=== PATIENT | male | born 1965 | race African-American/Black ===

== ENCOUNTER 2018-10-17 14:07 | Inpatient (IN) | payer MEDICAID, OTHER ==
[~2018-10-17] VITALS: Ht 172.7 cm; Wt 65.2 kg
[~2018-10-17 14:07] MED LIST: BENZ1TAB70 PO; HALO5TAB2 PO; TRUVT PO
[2018-10-17 16:36] LABS: AMPHET/METH SCREEN,URINE NEGATIVE (NEGATIVE); BARBITURATE SCREEN, URINE NEGATIVE (NEGATIVE); BENZODIAZEPINES SCREEN,URINE NEGATIVE (NEGATIVE); CANNABINOID SCREEN,URINE NEGATIVE (NEGATIVE); COCAINE SCREEN,URINE NEGATIVE (NEGATIVE); METHADONE SCREEN, URINE NEGATIVE (NEGATIVE); OPIATE SCREEN,URINE NEGATIVE (NEGATIVE)
[2018-10-17 16:47] LABS: BASOPHILS % (AUTO) 0.7 % (0.0-2.0); HEMATOCRIT 40.6 % (41-53); HEMOGLOBIN 12.7 g/dL (13.5-17.5); LYMPHOCYTES % (AUTO) 35.4 % (22.0-44.0); MEAN CORPUSCULAR HEMOGLOBIN 21.7 pg (26.0-34.0); MEAN CORPUSCULAR HGB CONC 31.3 G/dL (31.0-37.0); MEAN CORPUSCULAR VOLUME 70 fL (80-100); MONOCYTES # (AUTO) 0.5 K/uL (0.1-1.0); MONOCYTES % (AUTO) 16.9 % (2.0-9.0); NEUTROPHILS # (AUTO) 1.2 K/uL (1.8-7.7); PLATELET COUNT (AUTO) 288 K/uL (150-450); RED BLOOD CELL COUNT(AUTO) 5.84 MIL/uL (4.50-5.90); RED CELL DISTRIBUTION WIDTH 15.5 % (11.5-14.5)
[2018-10-17 16:48] LABS: PHENCYCLIDINE SCREEN,URINE NEGATIVE (NEGATIVE)
[2018-10-17 16:59] LABS: ANION GAP 5 mmol/L (8-16); CALCIUM, TOTAL 9.7 mg/dL (8.8-10.5); CARBON DIOXIDE 29 mmol/L (22-29); CHLORIDE 108 mmol/L (98-107); CREATININE 1.07 mg/dL (0.60-1.30); GLOMERULAR FILTR. RATE CALC > 60 mL/min (>60); GLUCOSE,RANDOM 114 mg/dL (70-110); POTASSIUM 4.9 mmol/L (3.5-5.1); SODIUM SERUM 142 mmol/L (136-145); UREA NITROGEN, BLOOD 8 mg/dL (7-18)
[2018-10-17] MEDS ORDERED: LORazepam 2 MG TABLET PO PRN (17:00)
[2018-10-17] MEDS ORDERED: HALOPERIDOL 5 MG TABLET PO PRN (17:00)
[2018-10-17] MEDS ORDERED: ZOLPIDEM TARTRATE 10 MG TABLET PO PRN (17:00)
[2018-10-17 17:04] LABS: ALANINE AMINOTRANSFERASE 42 U/L (12-78); ALBUMIN 3.1 g/dL (3.4-5.0); ALKALINE PHOSPHATASE 65 U/L (46-116); ASPARTATE AMINOTRANSFERASE 40 U/L (15-37); BILIRUBIN,TOTAL 0.3 mg/dL (0.1-1.0); TOTAL PROTEIN, SERUM 7.9 g/dL (6.4-8.2)
[2018-10-17] MEDS ORDERED: IBUPROFEN 400 MG TABLET PO PRN ×2 (17:15→19:30)
[2018-10-17] MEDS ORDERED: ACETAMINOPHEN 325 MG TABLET PO PRN ×2 (17:15→19:30)
[2018-10-17 18:35] VITALS: BP 126/79
[2018-10-17] MEDS ORDERED: CloNIDine HCL 0.1 MG TABLET PO PRN (19:30)
[2018-10-17] MEDS ORDERED: ONDANSETRON HCL 4 MG TABLET PO PRN (19:30)
[2018-10-17] MEDS ORDERED: PETROLATUM,WHITE 71 GM JELLY TP PRN (19:30)
[2018-10-17] MEDS ORDERED: DOCUSATE SODIUM 100 MG CAPSULE PO PRN (19:30)
[2018-10-17] MEDS ORDERED: ALBUTEROL SULFATE HFA 90 MCG/PUFF 8 GM INHALER IH PRN (19:30)
[2018-10-17] MEDS ORDERED: MAG HYDROX/AL HYDROX/SIMETH ES 30 ML SUSPENSION UDCUP PO PRN (19:30)
[2018-10-17] MEDS ORDERED: NICOTINE 14 MG/24 HOUR PATCH TD PRN (19:30)
[2018-10-17] MEDS ORDERED: GuaiFENesin/D-METHORPHAN [SUGAR-FREE] 200-20MG/10 ML SYRUP UDCUP PO PRN (19:30)
[2018-10-17] MEDS ORDERED: LOPERAMIDE HCL 2 MG CAPSULE PO PRN (19:30)
[2018-10-17] MEDS ORDERED: MAGNESIUM HYDROXIDE SUSPENSION 30 ML UDCUP PO PRN (19:30)
[2018-10-18 06:31] LABS: EOSINOPHILS % (AUTO) 3.5 % (1.0-6.0); HEMATOCRIT 40.5 % (41-53); HEMOGLOBIN 12.8 g/dL (13.5-17.5); LYMPHOCYTES # (AUTO) 1.1 K/uL (1.0-4.8); LYMPHOCYTES % (AUTO) 34.2 % (22.0-44.0); MEAN CORPUSCULAR HGB CONC 31.6 G/dL (31.0-37.0); MEAN CORPUSCULAR VOLUME 70 fL (80-100); MONOCYTES # (AUTO) 0.5 K/uL (0.1-1.0); NEUTROPHILS # (AUTO) 1.6 K/uL (1.8-7.7); NEUTROPHILS % (AUTO) 47.3 % (40.0-70.0); PLATELET COUNT (AUTO) 287 K/uL (150-450); RED BLOOD CELL COUNT(AUTO) 5.82 MIL/uL (4.50-5.90); RED CELL DISTRIBUTION WIDTH 15.7 % (11.5-14.5)
[2018-10-18 07:00] LABS: ALANINE AMINOTRANSFERASE 41 U/L (12-78); ALKALINE PHOSPHATASE 58 U/L (46-116); ANION GAP 6 mmol/L (8-16); ASPARTATE AMINOTRANSFERASE 47 U/L (15-37); BILIRUBIN,TOTAL 0.4 mg/dL (0.1-1.0); CALCIUM, TOTAL 9.3 mg/dL (8.8-10.5); CARBON DIOXIDE 27 mmol/L (22-29); CHLORIDE 101 mmol/L (98-107); CHOL/HDL RATIO 2.9 (4.2-7.3); CHOLESTEROL 147 mg/dL (131-200); CREATININE 0.91 mg/dL (0.60-1.30); GLOMERULAR FILTR. RATE CALC > 60 mL/min (>60); GLUCOSE,RANDOM 88 mg/dL (70-110); HDL CHOLESTEROL 50 mg/dL (40-60); LDL CHOL (CALC.) 86 mg/dL (0-130); POTASSIUM 4.2 mmol/L (3.5-5.1); SODIUM SERUM 134 mmol/L (136-145); THYROID STIMULATING HORMONE 0.75 uIU/mL (0.36-3.74); TOTAL PROTEIN, SERUM 7.7 g/dL (6.4-8.2); TRIGLYCERIDES 54 mg/dL (15-150); UREA NITROGEN, BLOOD 9 mg/dL (7-18)
[2018-10-18 07:29] LABS: HEMOGLOBIN A1C 6.5 % (4.5-6.2)
[2018-10-18 08:21] VITALS: BP 130/92
[2018-10-18] MEDS: EMTRICITABINE/TENOFOVIR 200-300 MG TABLET PO SCH (10:56)
[2018-10-18 16:00] VITALS: BP 108/73
[2018-10-18] MEDS: BENZTROPINE MESYLATE 1 MG TABLET PO SCH (20:30)
[2018-10-18] MEDS: HALOPERIDOL 5 MG TABLET PO SCH (20:30)
[2018-10-19] MEDS: BENZTROPINE MESYLATE 1 MG TABLET PO SCH ×2 (08:16→20:21)
[2018-10-19] MEDS: HALOPERIDOL 5 MG TABLET PO SCH ×2 (08:16→20:21)
[2018-10-19] MEDS: FOLIC ACID 1 MG TABLET PO SCH (08:16)
[2018-10-19] MEDS: EMTRICITABINE/TENOFOVIR 200-300 MG TABLET PO SCH (08:16)
[2018-10-19 08:37] VITALS: BP 115/74
[2018-10-19 16:49] VITALS: BP 124/77
[2018-10-20] MEDS: FOLIC ACID 1 MG TABLET PO SCH (07:36)
[2018-10-20] MEDS: EMTRICITABINE/TENOFOVIR 200-300 MG TABLET PO SCH (07:36)
[2018-10-20] MEDS: HALOPERIDOL 5 MG TABLET PO SCH ×2 (07:36→20:35)
[2018-10-20] MEDS: BENZTROPINE MESYLATE 1 MG TABLET PO SCH ×2 (07:36→20:35)
[2018-10-20 09:00] VITALS: BP 140/83
[2018-10-20 16:02] VITALS: BP 121/85
[2018-10-21 08:03] VITALS: BP 111/81
[2018-10-21] MEDS: BENZTROPINE MESYLATE 1 MG TABLET PO SCH ×2 (09:00→20:19)
[2018-10-21] MEDS: FOLIC ACID 1 MG TABLET PO SCH (09:00)
[2018-10-21] MEDS: HALOPERIDOL 5 MG TABLET PO SCH ×2 (09:00→20:19)
[2018-10-21] MEDS: EMTRICITABINE/TENOFOVIR 200-300 MG TABLET PO SCH (09:00)
[2018-10-21 16:00] VITALS: BP 134/71
[2018-10-22] MEDS: EMTRICITABINE/TENOFOVIR 200-300 MG TABLET PO SCH (09:00)
[2018-10-22] MEDS: FOLIC ACID 1 MG TABLET PO SCH (09:00)
[2018-10-22] MEDS: BENZTROPINE MESYLATE 1 MG TABLET PO SCH ×2 (09:00→20:15)
[2018-10-22] MEDS: HALOPERIDOL 5 MG TABLET PO SCH ×2 (09:00→20:16)
[2018-10-22 09:48] VITALS: BP 133/87
[2018-10-23 08:13] VITALS: BP 124/76
[2018-10-23] MEDS: FOLIC ACID 1 MG TABLET PO SCH (09:00)
[2018-10-23] MEDS: BENZTROPINE MESYLATE 1 MG TABLET PO SCH (09:00)
[2018-10-23] MEDS: EMTRICITABINE/TENOFOVIR 200-300 MG TABLET PO SCH (09:00)
[2018-10-23] MEDS: HALOPERIDOL 5 MG TABLET PO SCH (09:00)
[2018-10-23] MEDS ORDERED: FOLI1 PO (11:42)
== END 2018-10-23 14:55 | disposition home or self-care (01) | DRG 750 ==
LOC: EMS 14:08 → 3EC 18:06
PROVIDERS: ADMIT Psychiatry & Neurology Psychiatry; ATTEND Psychiatry & Neurology Psychiatry
DX: F20.0 Paranoid schizophrenia (principal); R45.850 Homicidal ideations; E11.9 Type 2 diabetes mellitus without complications; D64.9 Anemia, unspecified; D72.819 Decreased white blood cell count, unspecified; F09 Unspecified mental disorder due to known physiological condition
CPT/HCPCS: 83036; 84443; G0480

== ENCOUNTER 2018-11-04 12:34 | Inpatient (IN) | payer MEDICAID ==
[~2018-11-04] VITALS: Ht 172.7 cm; Wt 67.3 kg
[~2018-11-04 12:34] MED LIST changes: +FOLI1 PO
[2018-11-04] MEDS ORDERED: HALO10 PO (13:03)
[2018-11-04 13:33] LABS: BASOPHILS % (AUTO) 1.4 % (0.0-2.0); EOSINOPHILS % (AUTO) 2.3 % (1.0-6.0); HEMATOCRIT 38.5 % (41-53); HEMOGLOBIN 12.1 g/dL (13.5-17.5); LYMPHOCYTES # (AUTO) 0.9 K/uL (1.0-4.8); LYMPHOCYTES % (AUTO) 33.9 % (22.0-44.0); MEAN CORPUSCULAR HEMOGLOBIN 21.6 pg (26.0-34.0); MEAN CORPUSCULAR HGB CONC 31.4 G/dL (31.0-37.0); MEAN CORPUSCULAR VOLUME 69 fL (80-100); MONOCYTES # (AUTO) 0.3 K/uL (0.1-1.0); MONOCYTES % (AUTO) 11.4 % (2.0-9.0); NEUTROPHILS # (AUTO) 1.3 K/uL (1.8-7.7); PLATELET COUNT (AUTO) 278 K/uL (150-450); RED CELL DISTRIBUTION WIDTH 15.8 % (11.5-14.5)
[2018-11-04 13:42] LABS: ANION GAP 9 mmol/L (8-16); CALCIUM, TOTAL 9.2 mg/dL (8.8-10.5); CARBON DIOXIDE 27 mmol/L (22-29); CHLORIDE 106 mmol/L (98-107); CREATININE 0.95 mg/dL (0.60-1.30); GLOMERULAR FILTR. RATE CALC > 60 mL/min (>60); GLUCOSE,RANDOM 95 mg/dL (70-110); POTASSIUM 3.8 mmol/L (3.5-5.1); SODIUM SERUM 142 mmol/L (136-145); UREA NITROGEN, BLOOD 11 mg/dL (7-18)
[2018-11-04 13:48] LABS: ALANINE AMINOTRANSFERASE 54 U/L (12-78); ALBUMIN 3.3 g/dL (3.4-5.0); ALKALINE PHOSPHATASE 58 U/L (46-116); ASPARTATE AMINOTRANSFERASE 46 U/L (15-37); BILIRUBIN,TOTAL 0.3 mg/dL (0.1-1.0)
[2018-11-04 13:53] LABS: AMPHET/METH SCREEN,URINE NEGATIVE (NEGATIVE); BARBITURATE SCREEN, URINE NEGATIVE (NEGATIVE); BENZODIAZEPINES SCREEN,URINE NEGATIVE (NEGATIVE); CANNABINOID SCREEN,URINE NEGATIVE (NEGATIVE); COCAINE SCREEN,URINE NEGATIVE (NEGATIVE); METHADONE SCREEN, URINE NEGATIVE (NEGATIVE); OPIATE SCREEN,URINE NEGATIVE (NEGATIVE); PHENCYCLIDINE SCREEN,URINE NEGATIVE (NEGATIVE)
[2018-11-04] MEDS ORDERED: ZOLPIDEM TARTRATE 10 MG TABLET PO PRN (17:00)
[2018-11-04] MEDS ORDERED: LORazepam 2 MG TABLET PO PRN (17:00)
[2018-11-04] MEDS ORDERED: HALOPERIDOL 5 MG TABLET PO PRN (17:00)
[2018-11-04 18:05] VITALS: BP 152/82
[2018-11-04] MEDS ORDERED: NICOTINE 14 MG/24 HOUR PATCH TD PRN (20:45)
[2018-11-04] MEDS ORDERED: DOCUSATE SODIUM 100 MG CAPSULE PO PRN (20:45)
[2018-11-04] MEDS ORDERED: CloNIDine HCL 0.1 MG TABLET PO PRN (20:45)
[2018-11-04] MEDS ORDERED: ACETAMINOPHEN 325 MG TABLET PO PRN (20:45)
[2018-11-04] MEDS ORDERED: MAGNESIUM HYDROXIDE SUSPENSION 30 ML UDCUP PO PRN (20:45)
[2018-11-04] MEDS ORDERED: ONDANSETRON HCL 4 MG TABLET PO PRN (20:45)
[2018-11-04] MEDS ORDERED: ALBUTEROL SULFATE HFA 90 MCG/PUFF 8 GM INHALER IH PRN (20:45)
[2018-11-04] MEDS ORDERED: LOPERAMIDE HCL 2 MG CAPSULE PO PRN (20:45)
[2018-11-04] MEDS ORDERED: IBUPROFEN 400 MG TABLET PO PRN (20:45)
[2018-11-04] MEDS ORDERED: GuaiFENesin/D-METHORPHAN [SUGAR-FREE] 200-20MG/10 ML SYRUP UDCUP PO PRN (20:45)
[2018-11-04] MEDS ORDERED: MAG HYDROX/AL HYDROX/SIMETH ES 30 ML SUSPENSION UDCUP PO PRN (20:45)
[2018-11-04] MEDS ORDERED: PETROLATUM,WHITE 28 GM JELLY TP PRN (20:45)
[2018-11-05 06:18] LABS: HEMATOCRIT 37.8 % (41-53); LYMPHOCYTES % (AUTO) 33.2 % (22.0-44.0); MEAN CORPUSCULAR HEMOGLOBIN 21.7 pg (26.0-34.0); MEAN CORPUSCULAR HGB CONC 31.9 G/dL (31.0-37.0); MEAN CORPUSCULAR VOLUME 68 fL (80-100); MONOCYTES # (AUTO) 0.3 K/uL (0.1-1.0); NEUTROPHILS # (AUTO) 1.5 K/uL (1.8-7.7); NEUTROPHILS % (AUTO) 50.8 % (40.0-70.0); PLATELET COUNT (AUTO) 280 K/uL (150-450); RED BLOOD CELL COUNT(AUTO) 5.53 MIL/uL (4.50-5.90); RED CELL DISTRIBUTION WIDTH 15.8 % (11.5-14.5)
[2018-11-05 06:41] LABS: HEMOGLOBIN A1C 6.6 % (4.5-6.2)
[2018-11-05 07:28] LABS: ALANINE AMINOTRANSFERASE 50 U/L (12-78); ALBUMIN 3.1 g/dL (3.4-5.0); ALKALINE PHOSPHATASE 51 U/L (46-116); ANION GAP 9 mmol/L (8-16); ASPARTATE AMINOTRANSFERASE 43 U/L (15-37); BILIRUBIN,TOTAL 0.3 mg/dL (0.1-1.0); CARBON DIOXIDE 25 mmol/L (22-29); CHLORIDE 104 mmol/L (98-107); CHOL/HDL RATIO 2.8 (4.2-7.3); CHOLESTEROL 150 mg/dL (131-200); CREATININE 0.96 mg/dL (0.60-1.30); GLOMERULAR FILTR. RATE CALC > 60 mL/min (>60); GLUCOSE,RANDOM 89 mg/dL (70-110); HDL CHOLESTEROL 53 mg/dL (40-60); LDL CHOL (CALC.) 86 mg/dL (0-130); POTASSIUM 3.8 mmol/L (3.5-5.1); SODIUM SERUM 138 mmol/L (136-145); THYROID STIMULATING HORMONE 0.38 uIU/mL (0.36-3.74); TOTAL PROTEIN, SERUM 7.3 g/dL (6.4-8.2); TRIGLYCERIDES 53 mg/dL (15-150); UREA NITROGEN, BLOOD 13 mg/dL (7-18)
[2018-11-05] MEDS: EMTRICITABINE/TENOFOVIR 200-300 MG TABLET PO SCH (09:00)
[2018-11-05 18:04] LABS: FREE T4 (FREE THYROXINE) 0.99 ng/dL (0.76-1.46)
[2018-11-05] MEDS: HALOPERIDOL 5 MG TABLET PO SCH (21:00)
[2018-11-05] MEDS: BENZTROPINE MESYLATE 1 MG TABLET PO SCH (21:00)
[2018-11-06 08:00] VITALS: BP 139/82
[2018-11-06] MEDS: BENZTROPINE MESYLATE 1 MG TABLET PO SCH ×2 (09:00→21:00)
[2018-11-06] MEDS: HALOPERIDOL 5 MG TABLET PO SCH ×2 (09:00→21:00)
[2018-11-06] MEDS: EMTRICITABINE/TENOFOVIR 200-300 MG TABLET PO SCH (09:00)
[2018-11-07 08:47] VITALS: BP 122/80
[2018-11-07] MEDS: BENZTROPINE MESYLATE 1 MG TABLET PO SCH (09:00)
[2018-11-07] MEDS: HALOPERIDOL 5 MG TABLET PO SCH (09:00)
[2018-11-07] MEDS: EMTRICITABINE/TENOFOVIR 200-300 MG TABLET PO SCH (09:00)
== END 2018-11-07 14:45 | disposition home or self-care (01) | DRG 750 ==
LOC: EMS 12:34 → 3EC 17:15
PROVIDERS: ADMIT Psychiatry & Neurology Psychiatry; ATTEND Psychiatry & Neurology Psychiatry
DX: F20.0 Paranoid schizophrenia (principal); E11.9 Type 2 diabetes mellitus without complications; Z91.19 Patient's noncompliance with other medical treatment and regimen; D64.9 Anemia, unspecified; D72.819 Decreased white blood cell count, unspecified; Z79.899 Other long term (current) drug therapy
CPT/HCPCS: 83036; 84439; 84443; G0480

== ENCOUNTER 2018-11-20 10:57 | Inpatient (IN) | payer MEDICAID, OTHER ==
[~2018-11-20] VITALS: Ht 167.6 cm; Wt 64.1 kg
[~2018-11-20 10:57] MED LIST changes: -BENZ1TAB70 PO; -FOLI1 PO; -HALO5TAB2 PO
[2018-11-20 11:43] LABS: BASOPHILS % (AUTO) 0.7 % (0.0-2.0); EOSINOPHILS % (AUTO) 4.5 % (1.0-6.0); HEMATOCRIT 38.9 % (41-53); HEMOGLOBIN 12.4 g/dL (13.5-17.5); LYMPHOCYTES % (AUTO) 37.9 % (22.0-44.0); MEAN CORPUSCULAR HEMOGLOBIN 21.7 pg (26.0-34.0); MEAN CORPUSCULAR VOLUME 68 fL (80-100); MONOCYTES # (AUTO) 0.4 K/uL (0.1-1.0); MONOCYTES % (AUTO) 15.3 % (2.0-9.0); NEUTROPHILS # (AUTO) 1.1 K/uL (1.8-7.7); NEUTROPHILS % (AUTO) 41.6 % (40.0-70.0); PLATELET COUNT (AUTO) 313 K/uL (150-450); RED BLOOD CELL COUNT(AUTO) 5.74 MIL/uL (4.50-5.90); RED CELL DISTRIBUTION WIDTH 15.6 % (11.5-14.5)
[2018-11-20 11:47] LABS: AMPHET/METH SCREEN,URINE NEGATIVE (NEGATIVE); BARBITURATE SCREEN, URINE NEGATIVE (NEGATIVE); BENZODIAZEPINES SCREEN,URINE NEGATIVE (NEGATIVE); CANNABINOID SCREEN,URINE NEGATIVE (NEGATIVE); COCAINE SCREEN,URINE NEGATIVE (NEGATIVE); METHADONE SCREEN, URINE NEGATIVE (NEGATIVE); OPIATE SCREEN,URINE NEGATIVE (NEGATIVE)
[2018-11-20 11:48] LABS: PHENCYCLIDINE SCREEN,URINE NEGATIVE (NEGATIVE)
[2018-11-20 11:55] LABS: ANION GAP 8 mmol/L (8-16); CALCIUM, TOTAL 9.4 mg/dL (8.8-10.5); CARBON DIOXIDE 29 mmol/L (22-29); CHLORIDE 106 mmol/L (98-107); CREATININE 1.03 mg/dL (0.60-1.30); GLOMERULAR FILTR. RATE CALC > 60 mL/min (>60); GLUCOSE,RANDOM 104 mg/dL (70-110); POTASSIUM 3.8 mmol/L (3.5-5.1); SODIUM SERUM 143 mmol/L (136-145); UREA NITROGEN, BLOOD 12 mg/dL (7-18)
[2018-11-20 12:00] LABS: ALANINE AMINOTRANSFERASE 62 U/L (12-78); ALBUMIN 3.4 g/dL (3.4-5.0); ALKALINE PHOSPHATASE 83 U/L (46-116); ASPARTATE AMINOTRANSFERASE 55 U/L (15-37); BILIRUBIN,TOTAL 0.3 mg/dL (0.1-1.0); TOTAL PROTEIN, SERUM 8.4 g/dL (6.4-8.2)
[2018-11-20] MEDS: DiphenhydrAMINE HCL 50 MG CAPSULE PO ONE ×2 (13:43→13:56)
[2018-11-20] MEDS: LORazepam 2 MG TABLET PO ONE ×2 (13:44→13:56)
[2018-11-20] MEDS: HALOPERIDOL 5 MG TABLET PO ONE ×2 (13:44→13:56)
[2018-11-20] MEDS ORDERED: LORazepam 2 MG TABLET PO PRN (13:45)
[2018-11-20] MEDS ORDERED: ACETAMINOPHEN 325 MG TABLET PO PRN ×2 (13:45→17:45)
[2018-11-20] MEDS ORDERED: IBUPROFEN 400 MG TABLET PO PRN ×2 (13:45→17:45)
[2018-11-20] MEDS ORDERED: HALOPERIDOL 5 MG TABLET PO PRN (13:45)
[2018-11-20] MEDS ORDERED: ZOLPIDEM TARTRATE 10 MG TABLET PO PRN (13:45)
[2018-11-20 17:39] VITALS: BP 115/68
[2018-11-20] MEDS ORDERED: NICOTINE 14 MG/24 HOUR PATCH TD PRN (17:45)
[2018-11-20] MEDS ORDERED: GuaiFENesin/D-METHORPHAN [SUGAR-FREE] 200-20MG/10 ML SYRUP UDCUP PO PRN (17:45)
[2018-11-20] MEDS ORDERED: ONDANSETRON HCL 4 MG TABLET PO PRN (17:45)
[2018-11-20] MEDS ORDERED: DOCUSATE SODIUM 100 MG CAPSULE PO PRN (17:45)
[2018-11-20] MEDS ORDERED: CloNIDine HCL 0.1 MG TABLET PO PRN (17:45)
[2018-11-20] MEDS ORDERED: MAGNESIUM HYDROXIDE SUSPENSION 30 ML UDCUP PO PRN (17:45)
[2018-11-20] MEDS ORDERED: MAG HYDROX/AL HYDROX/SIMETH ES 30 ML SUSPENSION UDCUP PO PRN (17:45)
[2018-11-20] MEDS ORDERED: ALBUTEROL SULFATE HFA 90 MCG/PUFF 8 GM INHALER IH PRN (17:45)
[2018-11-20] MEDS ORDERED: LOPERAMIDE HCL 2 MG CAPSULE PO PRN (17:45)
[2018-11-20] MEDS ORDERED: PETROLATUM,WHITE 28 GM JELLY TP PRN (17:45)
[2018-11-21 05:31] VITALS: BP 113/64
[2018-11-21 08:16] LABS: BASOPHILS % (AUTO) 0.5 % (0.0-2.0); EOSINOPHILS % (AUTO) 5.3 % (1.0-6.0); HEMATOCRIT 41.2 % (41-53); HEMOGLOBIN 12.9 g/dL (13.5-17.5); LYMPHOCYTES # (AUTO) 1.1 K/uL (1.0-4.8); LYMPHOCYTES % (AUTO) 34.7 % (22.0-44.0); MEAN CORPUSCULAR HEMOGLOBIN 21.7 pg (26.0-34.0); MEAN CORPUSCULAR HGB CONC 31.3 G/dL (31.0-37.0); MEAN CORPUSCULAR VOLUME 69 fL (80-100); MONOCYTES # (AUTO) 0.4 K/uL (0.1-1.0); MONOCYTES % (AUTO) 12.3 % (2.0-9.0); NEUTROPHILS # (AUTO) 1.5 K/uL (1.8-7.7); NEUTROPHILS % (AUTO) 47.2 % (40.0-70.0); PLATELET COUNT (AUTO) 315 K/uL (150-450); RED BLOOD CELL COUNT(AUTO) 5.95 MIL/uL (4.50-5.90); RED CELL DISTRIBUTION WIDTH 15.7 % (11.5-14.5)
[2018-11-21 08:21] VITALS: BP 100/57
[2018-11-21 08:37] LABS: HEMOGLOBIN A1C 6.7 % (4.5-6.2)
[2018-11-21 08:45] LABS: ALANINE AMINOTRANSFERASE 54 U/L (12-78); ALBUMIN 3.1 g/dL (3.4-5.0); ALKALINE PHOSPHATASE 63 U/L (46-116); ANION GAP 6 mmol/L (8-16); ASPARTATE AMINOTRANSFERASE 49 U/L (15-37); BILIRUBIN,TOTAL 0.3 mg/dL (0.1-1.0); CALCIUM, TOTAL 9.3 mg/dL (8.8-10.5); CARBON DIOXIDE 28 mmol/L (22-29); CHLORIDE 105 mmol/L (98-107); CHOLESTEROL 154 mg/dL (131-200); CREATININE 0.97 mg/dL (0.60-1.30); GLOMERULAR FILTR. RATE CALC > 60 mL/min (>60); GLUCOSE,RANDOM 86 mg/dL (70-110); HDL CHOLESTEROL 51 mg/dL (40-60); LDL CHOL (CALC.) 88 mg/dL (0-130); POTASSIUM 4.3 mmol/L (3.5-5.1); SODIUM SERUM 139 mmol/L (136-145); THYROID STIMULATING HORMONE 0.44 uIU/mL (0.36-3.74); TOTAL PROTEIN, SERUM 8.3 g/dL (6.4-8.2); TRIGLYCERIDES 76 mg/dL (15-150); UREA NITROGEN, BLOOD 15 mg/dL (7-18)
[2018-11-21] MEDS: EMTRICITABINE/TENOFOVIR 200-300 MG TABLET PO SCH (09:00)
[2018-11-21 16:35] VITALS: BP 111/67
[2018-11-22 00:37] VITALS: BP 114/78
[2018-11-22] MEDS: EMTRICITABINE/TENOFOVIR 200-300 MG TABLET PO SCH (09:00)
[2018-11-22] MEDS: BENZTROPINE MESYLATE 1 MG TABLET PO SCH ×2 (12:31→20:44)
[2018-11-22] MEDS: HALOPERIDOL 5 MG TABLET PO SCH ×2 (12:31→20:44)
[2018-11-22 16:18] VITALS: BP 106/66
[2018-11-23 08:27] VITALS: BP 101/63
[2018-11-23] MEDS: EMTRICITABINE/TENOFOVIR 200-300 MG TABLET PO SCH (09:00)
[2018-11-23] MEDS: HALOPERIDOL 5 MG TABLET PO SCH ×2 (09:00→20:47)
[2018-11-23] MEDS: BENZTROPINE MESYLATE 1 MG TABLET PO SCH ×2 (09:00→20:47)
[2018-11-23 16:00] VITALS: BP 101/70
[2018-11-24 02:35] VITALS: BP 108/69
[2018-11-24 08:00] VITALS: BP 99/70
[2018-11-24] MEDS: BENZTROPINE MESYLATE 1 MG TABLET PO SCH ×2 (08:48→20:41)
[2018-11-24] MEDS: HALOPERIDOL 5 MG TABLET PO SCH ×2 (08:48→20:41)
[2018-11-24] MEDS: EMTRICITABINE/TENOFOVIR 200-300 MG TABLET PO SCH (08:48)
[2018-11-24 16:30] VITALS: BP 121/80
[2018-11-25 00:07] VITALS: BP 101/68
[2018-11-25 08:07] VITALS: BP 102/67
[2018-11-25] MEDS: BENZTROPINE MESYLATE 1 MG TABLET PO SCH ×2 (09:00→21:45)
[2018-11-25] MEDS: EMTRICITABINE/TENOFOVIR 200-300 MG TABLET PO SCH (09:00)
[2018-11-25] MEDS: HALOPERIDOL 5 MG TABLET PO SCH ×2 (09:00→21:45)
[2018-11-25 16:00] VITALS: BP 122/74
[2018-11-26 00:29] VITALS: BP 115/71
[2018-11-26] MEDS: BENZTROPINE MESYLATE 1 MG TABLET PO SCH ×2 (09:00→21:15)
[2018-11-26] MEDS: HALOPERIDOL 5 MG TABLET PO SCH ×2 (09:00→21:15)
[2018-11-26] MEDS: EMTRICITABINE/TENOFOVIR 200-300 MG TABLET PO SCH (09:00)
[2018-11-26 09:11] VITALS: BP 118/70
[2018-11-26 16:29] VITALS: BP 117/75
[2018-11-27 02:38] VITALS: BP 102/68
[2018-11-27 08:11] VITALS: BP 122/67
[2018-11-27 08:11] LABS: BASOPHILS % (AUTO) 0.5 % (0.0-2.0); HEMATOCRIT 37.3 % (41-53); HEMOGLOBIN 11.9 g/dL (13.5-17.5); LYMPHOCYTES # (AUTO) 1.4 K/uL (1.0-4.8); LYMPHOCYTES % (AUTO) 38.8 % (22.0-44.0); MEAN CORPUSCULAR HEMOGLOBIN 22.1 pg (26.0-34.0); MEAN CORPUSCULAR HGB CONC 31.9 G/dL (31.0-37.0); MEAN CORPUSCULAR VOLUME 69 fL (80-100); MONOCYTES # (AUTO) 0.4 K/uL (0.1-1.0); MONOCYTES % (AUTO) 10.8 % (2.0-9.0); NEUTROPHILS # (AUTO) 1.7 K/uL (1.8-7.7); NEUTROPHILS % (AUTO) 45.9 % (40.0-70.0); PLATELET COUNT (AUTO) 319 K/uL (150-450); RED BLOOD CELL COUNT(AUTO) 5.38 MIL/uL (4.50-5.90); RED CELL DISTRIBUTION WIDTH 15.8 % (11.5-14.5)
[2018-11-27] MEDS: BENZTROPINE MESYLATE 1 MG TABLET PO SCH ×2 (09:00→21:00)
[2018-11-27] MEDS: EMTRICITABINE/TENOFOVIR 200-300 MG TABLET PO SCH (09:00)
[2018-11-27] MEDS: HALOPERIDOL 5 MG TABLET PO SCH ×2 (09:00→21:00)
[2018-11-27 16:25] VITALS: BP 116/72
[2018-11-28 00:09] VITALS: BP 109/71
[2018-11-28 08:33] VITALS: BP 103/77
[2018-11-28] MEDS: EMTRICITABINE/TENOFOVIR 200-300 MG TABLET PO SCH ×2 (08:48→09:00)
[2018-11-28 16:49] VITALS: BP 127/82
[2018-11-28] MEDS: HALOPERIDOL 5 MG TABLET PO SCH (21:00)
[2018-11-28] MEDS: BENZTROPINE MESYLATE 1 MG TABLET PO SCH (21:00)
[2018-11-29 06:54] VITALS: BP 118/78
[2018-11-29] MEDS: EMTRICITABINE/TENOFOVIR 200-300 MG TABLET PO SCH ×2 (09:00→09:21)
[2018-11-29] MEDS: HALOPERIDOL 5 MG TABLET PO SCH (21:00)
[2018-11-29] MEDS: BENZTROPINE MESYLATE 1 MG TABLET PO SCH (21:00)
[2018-11-30 08:12] VITALS: BP 112/72
[2018-11-30] MEDS: EMTRICITABINE/TENOFOVIR 200-300 MG TABLET PO SCH (09:00)
[2018-11-30 16:13] VITALS: BP 123/85
[2018-11-30] MEDS: HALOPERIDOL 5 MG TABLET PO SCH (20:58)
[2018-11-30] MEDS: BENZTROPINE MESYLATE 1 MG TABLET PO SCH (20:58)
[2018-12-01 00:09] VITALS: BP 104/73
[2018-12-01] MEDS: EMTRICITABINE/TENOFOVIR 200-300 MG TABLET PO SCH (08:11)
[2018-12-01] MEDS: HALOPERIDOL 5 MG TABLET PO SCH (21:00)
[2018-12-01] MEDS: BENZTROPINE MESYLATE 1 MG TABLET PO SCH (21:00)
[2018-12-02 00:46] VITALS: BP 107/69
[2018-12-02] MEDS: EMTRICITABINE/TENOFOVIR 200-300 MG TABLET PO SCH (08:57)
[2018-12-02] MEDS ORDERED: LORazepam 2 MG/ML VIAL ONE (13:56)
[2018-12-02] MEDS ORDERED: DiphenhydrAMINE HCL 50 MG/ML VIAL ONE (13:57)
[2018-12-02] MEDS ORDERED: HALOPERIDOL LACTATE 5 MG/ML VIAL ONE (13:57)
[2018-12-02] MEDS ORDERED: DiphenhydrAMINE HCL 50 MG/ML VIAL IM ONE (14:00)
[2018-12-02] MEDS ORDERED: HALOPERIDOL LACTATE 5 MG/ML VIAL IM ONE (14:00)
[2018-12-02] MEDS ORDERED: LORazepam 2 MG/ML VIAL IM ONE (14:00)
[2018-12-02] MEDS: BENZTROPINE MESYLATE 1 MG TABLET PO SCH (20:55)
[2018-12-02] MEDS: HALOPERIDOL 5 MG TABLET PO SCH (20:55)
[2018-12-03 00:53] VITALS: BP 101/75
[2018-12-03] MEDS: EMTRICITABINE/TENOFOVIR 200-300 MG TABLET PO SCH (09:00)
[2018-12-03] MEDS: BENZTROPINE MESYLATE 1 MG TABLET PO SCH (21:00)
[2018-12-03] MEDS: HALOPERIDOL 5 MG TABLET PO SCH (21:00)
[2018-12-04 02:37] VITALS: BP 117/74
[2018-12-04] MEDS: EMTRICITABINE/TENOFOVIR 200-300 MG TABLET PO SCH (09:00)
[2018-12-04 10:56] VITALS: BP 121/78
[2018-12-04 16:00] VITALS: BP 119/78
[2018-12-04] MEDS: BENZTROPINE MESYLATE 1 MG TABLET PO SCH (21:00)
[2018-12-04] MEDS: HALOPERIDOL 5 MG TABLET PO SCH (21:00)
[2018-12-05 00:01] VITALS: BP 126/76
[2018-12-05] MEDS: EMTRICITABINE/TENOFOVIR 200-300 MG TABLET PO SCH (09:00)
[2018-12-05 09:53] VITALS: BP 116/84
[2018-12-05 16:54] VITALS: BP 122/79
[2018-12-05] MEDS: HALOPERIDOL 5 MG TABLET PO SCH (21:00)
[2018-12-05] MEDS: BENZTROPINE MESYLATE 1 MG TABLET PO SCH (21:00)
[2018-12-06 08:01] VITALS: BP 111/70
[2018-12-06] MEDS: EMTRICITABINE/TENOFOVIR 200-300 MG TABLET PO SCH (09:00)
[2018-12-06 16:51] VITALS: BP 124/87
[2018-12-06] MEDS: BENZTROPINE MESYLATE 1 MG TABLET PO SCH (21:00)
[2018-12-06] MEDS: HALOPERIDOL 5 MG TABLET PO SCH (21:00)
[2018-12-07 03:49] VITALS: BP 118/79
[2018-12-07 08:15] VITALS: BP 112/75
[2018-12-07] MEDS: EMTRICITABINE/TENOFOVIR 200-300 MG TABLET PO SCH (09:00)
[2018-12-07 16:16] VITALS: BP 109/73
[2018-12-07] MEDS: HALOPERIDOL 5 MG TABLET PO SCH (21:00)
[2018-12-07] MEDS: BENZTROPINE MESYLATE 1 MG TABLET PO SCH (21:00)
[2018-12-08] MEDS: EMTRICITABINE/TENOFOVIR 200-300 MG TABLET PO SCH (09:00)
[2018-12-08] MEDS: HALOPERIDOL 5 MG TABLET PO SCH (20:51)
[2018-12-08] MEDS: BENZTROPINE MESYLATE 1 MG TABLET PO SCH (20:51)
[2018-12-09] MEDS: EMTRICITABINE/TENOFOVIR 200-300 MG TABLET PO SCH (09:00)
[2018-12-09 16:44] VITALS: BP 123/77
[2018-12-09] MEDS: BENZTROPINE MESYLATE 1 MG TABLET PO SCH (21:00)
[2018-12-09] MEDS: HALOPERIDOL 5 MG TABLET PO SCH (21:00)
[2018-12-10 06:28] VITALS: BP 116/77
[2018-12-10] MEDS: EMTRICITABINE/TENOFOVIR 200-300 MG TABLET PO SCH (08:59)
[2018-12-10 16:00] VITALS: BP 112/80
[2018-12-10] MEDS: BENZTROPINE MESYLATE 1 MG TABLET PO SCH (20:41)
[2018-12-10] MEDS: HALOPERIDOL 5 MG TABLET PO SCH (20:41)
[2018-12-11 01:40] VITALS: BP 113/69
[2018-12-11] MEDS: EMTRICITABINE/TENOFOVIR 200-300 MG TABLET PO SCH (08:46)
[2018-12-11] MEDS: BENZTROPINE MESYLATE 1 MG TABLET PO SCH (20:57)
[2018-12-11] MEDS: HALOPERIDOL 5 MG TABLET PO SCH (20:57)
[2018-12-12] MEDS: EMTRICITABINE/TENOFOVIR 200-300 MG TABLET PO SCH (09:00)
[2018-12-12] MEDS: HALOPERIDOL 5 MG TABLET PO SCH (21:00)
[2018-12-12] MEDS: BENZTROPINE MESYLATE 1 MG TABLET PO SCH (21:00)
[2018-12-13 08:00] VITALS: BP 130/94
[2018-12-13] MEDS: EMTRICITABINE/TENOFOVIR 200-300 MG TABLET PO SCH (09:00)
[2018-12-13 16:24] VITALS: BP 107/67
[2018-12-13] MEDS: BENZTROPINE MESYLATE 1 MG TABLET PO SCH (20:58)
[2018-12-13] MEDS: HALOPERIDOL 5 MG TABLET PO SCH (20:58)
[2018-12-13] MEDS: HALOPERIDOL LACTATE 5 MG/ML VIAL IM PRN (21:00)
[2018-12-14 08:50] VITALS: BP 106/69
[2018-12-14] MEDS: EMTRICITABINE/TENOFOVIR 200-300 MG TABLET PO SCH (09:00)
[2018-12-14 16:30] VITALS: BP 104/74
[2018-12-14] MEDS: HALOPERIDOL 5 MG TABLET PO SCH (21:00)
[2018-12-14] MEDS: BENZTROPINE MESYLATE 1 MG TABLET PO SCH (21:00)
[2018-12-14] MEDS: HALOPERIDOL LACTATE 5 MG/ML VIAL IM PRN (21:03)
[2018-12-15 06:54] LABS: BASOPHILS % (AUTO) 0.4 % (0.0-2.0); EOSINOPHILS % (AUTO) 6.7 % (1.0-6.0); HEMATOCRIT 40.5 % (41-53); LYMPHOCYTES # (AUTO) 1.6 K/uL (1.0-4.8); LYMPHOCYTES % (AUTO) 37.2 % (22.0-44.0); MEAN CORPUSCULAR HEMOGLOBIN 22.1 pg (26.0-34.0); MEAN CORPUSCULAR HGB CONC 32.1 G/dL (31.0-37.0); MEAN CORPUSCULAR VOLUME 69 fL (80-100); MONOCYTES # (AUTO) 0.6 K/uL (0.1-1.0); MONOCYTES % (AUTO) 12.8 % (2.0-9.0); NEUTROPHILS # (AUTO) 1.9 K/uL (1.8-7.7); NEUTROPHILS % (AUTO) 42.9 % (40.0-70.0); PLATELET COUNT (AUTO) 261 K/uL (150-450); RED CELL DISTRIBUTION WIDTH 16.1 % (11.5-14.5)
[2018-12-15 08:18] VITALS: BP 112/76
[2018-12-15] MEDS: EMTRICITABINE/TENOFOVIR 200-300 MG TABLET PO SCH (09:00)
[2018-12-15 17:25] VITALS: BP 115/83
[2018-12-15] MEDS: BENZTROPINE MESYLATE 1 MG TABLET PO SCH (21:00)
[2018-12-15] MEDS: HALOPERIDOL 5 MG TABLET PO SCH (21:00)
[2018-12-15] MEDS: HALOPERIDOL LACTATE 5 MG/ML VIAL IM PRN (21:48)
[2018-12-16 08:46] VITALS: BP 102/77
[2018-12-16] MEDS: EMTRICITABINE/TENOFOVIR 200-300 MG TABLET PO SCH (09:00)
[2018-12-16 16:00] VITALS: BP 121/82
[2018-12-16] MEDS: BENZTROPINE MESYLATE 1 MG TABLET PO SCH (20:41)
[2018-12-16] MEDS: HALOPERIDOL 5 MG TABLET PO SCH (20:41)
[2018-12-16] MEDS: HALOPERIDOL LACTATE 5 MG/ML VIAL IM PRN (20:42)
[2018-12-17 01:31] VITALS: BP 105/71
[2018-12-17 08:24] VITALS: BP 107/66
[2018-12-17] MEDS: EMTRICITABINE/TENOFOVIR 200-300 MG TABLET PO SCH (09:00)
[2018-12-17 16:23] VITALS: BP 117/73
[2018-12-17] MEDS: HALOPERIDOL 5 MG TABLET PO SCH (20:32)
[2018-12-17] MEDS: BENZTROPINE MESYLATE 1 MG TABLET PO SCH (20:32)
[2018-12-17] MEDS: HALOPERIDOL LACTATE 5 MG/ML VIAL IM PRN (20:39)
[2018-12-18 08:06] VITALS: BP 117/74
[2018-12-18] MEDS: EMTRICITABINE/TENOFOVIR 200-300 MG TABLET PO SCH (09:00)
[2018-12-18] MEDS: HALOPERIDOL 5 MG TABLET PO SCH (20:40)
[2018-12-18] MEDS: BENZTROPINE MESYLATE 1 MG TABLET PO SCH (20:40)
[2018-12-18] MEDS: HALOPERIDOL LACTATE 5 MG/ML VIAL IM PRN (20:42)
[2018-12-19] MEDS: EMTRICITABINE/TENOFOVIR 200-300 MG TABLET PO SCH (09:00)
[2018-12-19] MEDS: BENZTROPINE MESYLATE 1 MG TABLET PO SCH (20:58)
[2018-12-19] MEDS: HALOPERIDOL 5 MG TABLET PO SCH (20:58)
[2018-12-19] MEDS: HALOPERIDOL LACTATE 5 MG/ML VIAL IM PRN (20:59)
[2018-12-20] MEDS: EMTRICITABINE/TENOFOVIR 200-300 MG TABLET PO SCH (09:00)
[2018-12-20] MEDS: HALOPERIDOL 5 MG TABLET PO SCH (20:49)
[2018-12-20] MEDS: BENZTROPINE MESYLATE 1 MG TABLET PO SCH (20:49)
[2018-12-20] MEDS: HALOPERIDOL LACTATE 5 MG/ML VIAL IM PRN (20:50)
[2018-12-21] MEDS: EMTRICITABINE/TENOFOVIR 200-300 MG TABLET PO SCH (09:00)
[2018-12-21] MEDS: BENZTROPINE MESYLATE 1 MG TABLET PO SCH (21:00)
[2018-12-21] MEDS: HALOPERIDOL 5 MG TABLET PO SCH (21:00)
[2018-12-21] MEDS: HALOPERIDOL LACTATE 5 MG/ML VIAL IM PRN (21:05)
[2018-12-22] MEDS: EMTRICITABINE/TENOFOVIR 200-300 MG TABLET PO SCH (09:00)
[2018-12-22] MEDS: HALOPERIDOL 5 MG TABLET PO SCH (20:30)
[2018-12-22] MEDS: BENZTROPINE MESYLATE 1 MG TABLET PO SCH (20:30)
[2018-12-22] MEDS: HALOPERIDOL LACTATE 5 MG/ML VIAL IM PRN (20:44)
[2018-12-23] MEDS: EMTRICITABINE/TENOFOVIR 200-300 MG TABLET PO SCH (09:00)
[2018-12-23] MEDS: BENZTROPINE MESYLATE 1 MG TABLET PO SCH (21:00)
[2018-12-23] MEDS: HALOPERIDOL 5 MG TABLET PO SCH (21:00)
[2018-12-23] MEDS: HALOPERIDOL LACTATE 5 MG/ML VIAL IM PRN (22:00)
[2018-12-24] MEDS: EMTRICITABINE/TENOFOVIR 200-300 MG TABLET PO SCH (09:00)
[2018-12-24] MEDS ORDERED: TUBERCULIN, PURIFIED PROTEIN DERIVATIVE 5 TU/0.1 ML SYRINGE ID ONE (14:45)
[2018-12-24] MEDS: BENZTROPINE MESYLATE 1 MG TABLET PO SCH (21:00)
[2018-12-24] MEDS: HALOPERIDOL 5 MG TABLET PO SCH (21:00)
[2018-12-24] MEDS: HALOPERIDOL LACTATE 5 MG/ML VIAL IM PRN (21:12)
[2018-12-25] MEDS: EMTRICITABINE/TENOFOVIR 200-300 MG TABLET PO SCH (09:00)
[2018-12-25] MEDS: HALOPERIDOL LACTATE 5 MG/ML VIAL IM PRN (20:36)
[2018-12-25] MEDS: BENZTROPINE MESYLATE 1 MG TABLET PO SCH (20:39)
[2018-12-25] MEDS: HALOPERIDOL 5 MG TABLET PO SCH (20:39)
[2018-12-26] MEDS: EMTRICITABINE/TENOFOVIR 200-300 MG TABLET PO SCH (09:00)
[2018-12-26] MEDS: HALOPERIDOL 5 MG TABLET PO SCH (16:49)
[2018-12-26] MEDS: HALOPERIDOL LACTATE 5 MG/ML VIAL IM PRN (16:50)
[2018-12-26] MEDS: BENZTROPINE MESYLATE 1 MG TABLET PO SCH (20:42)
[2018-12-27] MEDS: EMTRICITABINE/TENOFOVIR 200-300 MG TABLET PO SCH (09:00)
[2018-12-27] MEDS: HALOPERIDOL 5 MG TABLET PO SCH ×2 (09:00→17:00)
[2018-12-27] MEDS: HALOPERIDOL LACTATE 5 MG/ML VIAL IM PRN ×2 (09:58→17:24)
[2018-12-27] MEDS: BENZTROPINE MESYLATE 1 MG TABLET PO SCH (20:37)
[2018-12-28] MEDS: HALOPERIDOL 5 MG TABLET PO SCH ×2 (09:00→17:00)
[2018-12-28] MEDS: EMTRICITABINE/TENOFOVIR 200-300 MG TABLET PO SCH (09:00)
[2018-12-28] MEDS: HALOPERIDOL LACTATE 5 MG/ML VIAL IM PRN ×2 (10:01→17:33)
[2018-12-28] MEDS: BENZTROPINE MESYLATE 1 MG TABLET PO SCH (21:00)
[2018-12-29] MEDS: HALOPERIDOL 5 MG TABLET PO SCH ×2 (09:00→16:44)
[2018-12-29] MEDS: EMTRICITABINE/TENOFOVIR 200-300 MG TABLET PO SCH (09:00)
[2018-12-29] MEDS: HALOPERIDOL LACTATE 5 MG/ML VIAL IM PRN ×2 (09:09→17:20)
[2018-12-29] MEDS: BENZTROPINE MESYLATE 1 MG TABLET PO SCH (20:53)
[2018-12-30] MEDS: EMTRICITABINE/TENOFOVIR 200-300 MG TABLET PO SCH (09:00)
[2018-12-30] MEDS: HALOPERIDOL 5 MG TABLET PO SCH ×2 (09:00→17:00)
[2018-12-30] MEDS: HALOPERIDOL LACTATE 5 MG/ML VIAL IM PRN ×2 (09:22→17:25)
[2018-12-30] MEDS: BENZTROPINE MESYLATE 1 MG TABLET PO SCH (21:00)
[2018-12-31] MEDS: EMTRICITABINE/TENOFOVIR 200-300 MG TABLET PO SCH (09:00)
[2018-12-31] MEDS: HALOPERIDOL 5 MG TABLET PO SCH ×2 (09:00→16:38)
[2018-12-31] MEDS: HALOPERIDOL LACTATE 5 MG/ML VIAL IM PRN ×2 (10:07→16:39)
[2018-12-31] MEDS ORDERED: BENZTROPINE MESYLATE 0.5 MG TABLET PO SCH (17:00)
[2018-12-31] MEDS: BENZTROPINE MESYLATE 1 MG TABLET PO SCH (20:40)
[2019-01-01] MEDS: HALOPERIDOL 5 MG TABLET PO SCH ×2 (09:00→18:02)
[2019-01-01] MEDS: EMTRICITABINE/TENOFOVIR 200-300 MG TABLET PO SCH (09:00)
[2019-01-01] MEDS: HALOPERIDOL LACTATE 5 MG/ML VIAL IM PRN (10:19)
[2019-01-01] MEDS: BENZTROPINE MESYLATE 1 MG TABLET PO SCH (19:37)
[2019-01-02] MEDS: HALOPERIDOL 5 MG TABLET PO SCH ×2 (08:56→17:14)
[2019-01-02] MEDS: EMTRICITABINE/TENOFOVIR 200-300 MG TABLET PO SCH (08:59)
[2019-01-02] MEDS: BENZTROPINE MESYLATE 1 MG TABLET PO SCH (17:14)
[2019-01-03] MEDS: EMTRICITABINE/TENOFOVIR 200-300 MG TABLET PO SCH (09:00)
[2019-01-03] MEDS: HALOPERIDOL 5 MG TABLET PO SCH ×2 (09:15→16:32)
[2019-01-03] MEDS: BENZTROPINE MESYLATE 1 MG TABLET PO SCH (16:32)
[2019-01-04 06:42] VITALS: BP 139/81
[2019-01-04] MEDS: EMTRICITABINE/TENOFOVIR 200-300 MG TABLET PO SCH (09:00)
[2019-01-04] MEDS: HALOPERIDOL 5 MG TABLET PO SCH ×2 (09:07→16:27)
[2019-01-04] MEDS: BENZTROPINE MESYLATE 1 MG TABLET PO SCH (16:27)
[2019-01-05] MEDS: EMTRICITABINE/TENOFOVIR 200-300 MG TABLET PO SCH (09:00)
[2019-01-05] MEDS: HALOPERIDOL 5 MG TABLET PO SCH ×2 (09:23→16:42)
[2019-01-05] MEDS: BENZTROPINE MESYLATE 1 MG TABLET PO SCH (16:42)
[2019-01-06] MEDS: HALOPERIDOL 5 MG TABLET PO SCH ×2 (09:00→16:51)
[2019-01-06] MEDS: EMTRICITABINE/TENOFOVIR 200-300 MG TABLET PO SCH (09:00)
[2019-01-06] MEDS: BENZTROPINE MESYLATE 1 MG TABLET PO SCH (16:51)
[2019-01-07] MEDS: HALOPERIDOL 5 MG TABLET PO SCH ×2 (08:27→17:07)
[2019-01-07] MEDS: EMTRICITABINE/TENOFOVIR 200-300 MG TABLET PO SCH (08:27)
[2019-01-07 16:00] VITALS: BP 128/89
[2019-01-07] MEDS: BENZTROPINE MESYLATE 1 MG TABLET PO SCH (17:07)
[2019-01-08] MEDS: HALOPERIDOL 5 MG TABLET PO SCH ×2 (08:35→16:41)
[2019-01-08] MEDS: EMTRICITABINE/TENOFOVIR 200-300 MG TABLET PO SCH (08:36)
[2019-01-08] MEDS: BENZTROPINE MESYLATE 1 MG TABLET PO SCH (16:41)
[2019-01-08] MEDS ORDERED: LURASIDONE HCL 40 MG TABLET PO SCH ×2 (17:00)
[2019-01-09] MEDS: EMTRICITABINE/TENOFOVIR 200-300 MG TABLET PO SCH (09:32)
[2019-01-09] MEDS: HALOPERIDOL 5 MG TABLET PO SCH ×2 (09:32→16:49)
[2019-01-09] MEDS: BENZTROPINE MESYLATE 1 MG TABLET PO SCH (16:49)
[2019-01-10] MEDS: EMTRICITABINE/TENOFOVIR 200-300 MG TABLET PO SCH (09:00)
[2019-01-10] MEDS: HALOPERIDOL 5 MG TABLET PO SCH ×2 (09:09→16:55)
[2019-01-10] MEDS: BENZTROPINE MESYLATE 1 MG TABLET PO SCH (16:55)
[2019-01-11] MEDS: EMTRICITABINE/TENOFOVIR 200-300 MG TABLET PO SCH (09:00)
[2019-01-11] MEDS: HALOPERIDOL 5 MG TABLET PO SCH ×2 (09:11→16:16)
[2019-01-11] MEDS: BENZTROPINE MESYLATE 1 MG TABLET PO SCH (16:16)
[2019-01-12] MEDS: EMTRICITABINE/TENOFOVIR 200-300 MG TABLET PO SCH (09:00)
[2019-01-12] MEDS: HALOPERIDOL 5 MG TABLET PO SCH ×2 (09:39→17:08)
[2019-01-12] MEDS: BENZTROPINE MESYLATE 1 MG TABLET PO SCH (17:08)
[2019-01-13] MEDS: HALOPERIDOL 5 MG TABLET PO SCH ×2 (08:44→16:48)
[2019-01-13] MEDS: EMTRICITABINE/TENOFOVIR 200-300 MG TABLET PO SCH (08:44)
[2019-01-13] MEDS: BENZTROPINE MESYLATE 1 MG TABLET PO SCH (16:49)
[2019-01-14] MEDS: HALOPERIDOL 5 MG TABLET PO SCH ×2 (08:27→16:25)
[2019-01-14] MEDS: EMTRICITABINE/TENOFOVIR 200-300 MG TABLET PO SCH (08:27)
[2019-01-14] MEDS: BENZTROPINE MESYLATE 1 MG TABLET PO SCH (16:25)
[2019-01-15] MEDS: HALOPERIDOL 5 MG TABLET PO SCH ×2 (08:37→16:28)
[2019-01-15] MEDS: EMTRICITABINE/TENOFOVIR 200-300 MG TABLET PO SCH (08:37)
[2019-01-15] MEDS: BENZTROPINE MESYLATE 1 MG TABLET PO SCH (16:28)
[2019-01-16] MEDS: HALOPERIDOL 5 MG TABLET PO SCH ×2 (08:43→16:55)
[2019-01-16] MEDS: EMTRICITABINE/TENOFOVIR 200-300 MG TABLET PO SCH (08:48)
[2019-01-16] MEDS: BENZTROPINE MESYLATE 1 MG TABLET PO SCH (16:54)
[2019-01-17] MEDS: HALOPERIDOL 5 MG TABLET PO SCH ×2 (08:48→16:30)
[2019-01-17] MEDS: EMTRICITABINE/TENOFOVIR 200-300 MG TABLET PO SCH (09:00)
[2019-01-17] MEDS: BENZTROPINE MESYLATE 1 MG TABLET PO SCH (16:30)
[2019-01-18] MEDS: EMTRICITABINE/TENOFOVIR 200-300 MG TABLET PO SCH (09:00)
[2019-01-18] MEDS: HALOPERIDOL 5 MG TABLET PO SCH ×2 (09:09→16:41)
[2019-01-18] MEDS: BENZTROPINE MESYLATE 1 MG TABLET PO SCH (16:41)
[2019-01-19] MEDS: EMTRICITABINE/TENOFOVIR 200-300 MG TABLET PO SCH (08:36)
[2019-01-19] MEDS: HALOPERIDOL 5 MG TABLET PO SCH ×2 (08:36→16:37)
[2019-01-19] MEDS: BENZTROPINE MESYLATE 1 MG TABLET PO SCH (16:37)
[2019-01-20] MEDS: HALOPERIDOL 5 MG TABLET PO SCH ×2 (08:42→16:58)
[2019-01-20] MEDS: EMTRICITABINE/TENOFOVIR 200-300 MG TABLET PO SCH (08:42)
[2019-01-20] MEDS: BENZTROPINE MESYLATE 1 MG TABLET PO SCH (16:58)
[2019-01-21] MEDS: EMTRICITABINE/TENOFOVIR 200-300 MG TABLET PO SCH (08:58)
[2019-01-21] MEDS: HALOPERIDOL 5 MG TABLET PO SCH ×2 (08:58→16:52)
[2019-01-21] MEDS: BENZTROPINE MESYLATE 1 MG TABLET PO SCH (16:53)
[2019-01-22] MEDS: HALOPERIDOL 5 MG TABLET PO SCH ×2 (08:30→16:36)
[2019-01-22] MEDS: EMTRICITABINE/TENOFOVIR 200-300 MG TABLET PO SCH (08:30)
[2019-01-22] MEDS: BENZTROPINE MESYLATE 1 MG TABLET PO SCH (16:36)
[2019-01-23] MEDS: HALOPERIDOL 5 MG TABLET PO SCH ×2 (08:51→16:23)
[2019-01-23] MEDS: EMTRICITABINE/TENOFOVIR 200-300 MG TABLET PO SCH (08:54)
[2019-01-23] MEDS: BENZTROPINE MESYLATE 1 MG TABLET PO SCH (16:23)
[2019-01-24] MEDS: EMTRICITABINE/TENOFOVIR 200-300 MG TABLET PO SCH (09:00)
[2019-01-24] MEDS: HALOPERIDOL 5 MG TABLET PO SCH ×2 (09:21→16:41)
[2019-01-24] MEDS: BENZTROPINE MESYLATE 1 MG TABLET PO SCH (16:41)
[2019-01-25] MEDS: HALOPERIDOL 5 MG TABLET PO SCH ×2 (08:47→16:19)
[2019-01-25] MEDS: EMTRICITABINE/TENOFOVIR 200-300 MG TABLET PO SCH (08:48)
[2019-01-25] MEDS: BENZTROPINE MESYLATE 1 MG TABLET PO SCH (16:19)
[2019-01-26] MEDS: EMTRICITABINE/TENOFOVIR 200-300 MG TABLET PO SCH (08:39)
[2019-01-26] MEDS: HALOPERIDOL 5 MG TABLET PO SCH ×2 (08:39→16:57)
[2019-01-26] MEDS: BENZTROPINE MESYLATE 1 MG TABLET PO SCH (16:57)
[2019-01-27] MEDS: HALOPERIDOL 5 MG TABLET PO SCH ×2 (08:35→16:51)
[2019-01-27] MEDS: EMTRICITABINE/TENOFOVIR 200-300 MG TABLET PO SCH (08:36)
[2019-01-27] MEDS: BENZTROPINE MESYLATE 1 MG TABLET PO SCH (16:51)
[2019-01-28] MEDS: HALOPERIDOL 5 MG TABLET PO SCH ×2 (08:31→16:41)
[2019-01-28] MEDS: EMTRICITABINE/TENOFOVIR 200-300 MG TABLET PO SCH (08:31)
[2019-01-28] MEDS: BENZTROPINE MESYLATE 1 MG TABLET PO SCH (16:41)
[2019-01-29] MEDS: EMTRICITABINE/TENOFOVIR 200-300 MG TABLET PO SCH (08:25)
[2019-01-29] MEDS: HALOPERIDOL 5 MG TABLET PO SCH ×2 (08:26→17:01)
[2019-01-29] MEDS: BENZTROPINE MESYLATE 1 MG TABLET PO SCH (17:01)
[2019-01-30] MEDS: HALOPERIDOL 5 MG TABLET PO SCH ×2 (08:32→16:54)
[2019-01-30] MEDS: EMTRICITABINE/TENOFOVIR 200-300 MG TABLET PO SCH (09:00)
[2019-01-30] MEDS: BENZTROPINE MESYLATE 1 MG TABLET PO SCH (16:54)
[2019-01-31] MEDS: HALOPERIDOL 5 MG TABLET PO SCH ×2 (08:49→16:47)
[2019-01-31] MEDS: EMTRICITABINE/TENOFOVIR 200-300 MG TABLET PO SCH (08:51)
[2019-01-31] MEDS: BENZTROPINE MESYLATE 1 MG TABLET PO SCH (16:47)
[2019-02-01] MEDS: EMTRICITABINE/TENOFOVIR 200-300 MG TABLET PO SCH (08:50)
[2019-02-01] MEDS: HALOPERIDOL 5 MG TABLET PO SCH ×2 (08:50→16:32)
[2019-02-01] MEDS: BENZTROPINE MESYLATE 1 MG TABLET PO SCH (16:32)
[2019-02-02] MEDS: HALOPERIDOL 5 MG TABLET PO SCH ×2 (09:02→16:27)
[2019-02-02] MEDS: EMTRICITABINE/TENOFOVIR 200-300 MG TABLET PO SCH (09:02)
[2019-02-02] MEDS: BENZTROPINE MESYLATE 1 MG TABLET PO SCH (16:27)
[2019-02-03] MEDS: EMTRICITABINE/TENOFOVIR 200-300 MG TABLET PO SCH (09:00)
[2019-02-03] MEDS: HALOPERIDOL 5 MG TABLET PO SCH ×2 (09:25→16:15)
[2019-02-03] MEDS: BENZTROPINE MESYLATE 1 MG TABLET PO SCH (16:15)
[2019-02-04 08:35] VITALS: BP 134/94
[2019-02-04] MEDS: EMTRICITABINE/TENOFOVIR 200-300 MG TABLET PO SCH (09:00)
[2019-02-04] MEDS: HALOPERIDOL 5 MG TABLET PO SCH ×2 (09:33→16:14)
[2019-02-04] MEDS: BENZTROPINE MESYLATE 1 MG TABLET PO SCH (16:14)
[2019-02-05] MEDS: HALOPERIDOL 5 MG TABLET PO SCH ×2 (08:42→16:21)
[2019-02-05] MEDS: EMTRICITABINE/TENOFOVIR 200-300 MG TABLET PO SCH (09:00)
[2019-02-05] MEDS: BENZTROPINE MESYLATE 1 MG TABLET PO SCH (16:21)
[2019-02-06] MEDS: EMTRICITABINE/TENOFOVIR 200-300 MG TABLET PO SCH (09:00)
[2019-02-06] MEDS: HALOPERIDOL 5 MG TABLET PO SCH ×2 (09:16→16:28)
[2019-02-06] MEDS: BENZTROPINE MESYLATE 1 MG TABLET PO SCH (16:28)
[2019-02-07] MEDS: EMTRICITABINE/TENOFOVIR 200-300 MG TABLET PO SCH (09:00)
[2019-02-07] MEDS: HALOPERIDOL 5 MG TABLET PO SCH ×2 (09:06→16:39)
[2019-02-07] MEDS: BENZTROPINE MESYLATE 1 MG TABLET PO SCH (16:39)
[2019-02-08] MEDS: HALOPERIDOL 5 MG TABLET PO SCH ×2 (08:47→17:01)
[2019-02-08] MEDS: EMTRICITABINE/TENOFOVIR 200-300 MG TABLET PO SCH (08:49)
[2019-02-08] MEDS: BENZTROPINE MESYLATE 1 MG TABLET PO SCH (17:01)
[2019-02-09] MEDS: HALOPERIDOL 5 MG TABLET PO SCH ×2 (08:03→16:40)
[2019-02-09] MEDS: EMTRICITABINE/TENOFOVIR 200-300 MG TABLET PO SCH (08:03)
[2019-02-09] MEDS: BENZTROPINE MESYLATE 1 MG TABLET PO SCH (16:40)
[2019-02-10] MEDS: HALOPERIDOL 5 MG TABLET PO SCH ×2 (08:25→17:49)
[2019-02-10] MEDS: EMTRICITABINE/TENOFOVIR 200-300 MG TABLET PO SCH (08:28)
[2019-02-10] MEDS: BENZTROPINE MESYLATE 1 MG TABLET PO SCH (17:49)
[2019-02-11] MEDS: EMTRICITABINE/TENOFOVIR 200-300 MG TABLET PO SCH (08:43)
[2019-02-11] MEDS: HALOPERIDOL 5 MG TABLET PO SCH ×2 (08:43→16:36)
[2019-02-11] MEDS: BENZTROPINE MESYLATE 1 MG TABLET PO SCH (16:36)
[2019-02-12] MEDS: HALOPERIDOL 5 MG TABLET PO SCH ×2 (08:15→16:56)
[2019-02-12] MEDS: EMTRICITABINE/TENOFOVIR 200-300 MG TABLET PO SCH (08:15)
[2019-02-12 08:40] LABS: BASOPHILS % (AUTO) 0.5 % (0.0-2.0); HEMATOCRIT 38.7 % (41-53); HEMOGLOBIN 12.3 g/dL (13.5-17.5); LYMPHOCYTES # (AUTO) 1.4 K/uL (1.0-4.8); LYMPHOCYTES % (AUTO) 36.1 % (22.0-44.0); MEAN CORPUSCULAR HEMOGLOBIN 22.3 pg (26.0-34.0); MEAN CORPUSCULAR HGB CONC 31.7 G/dL (31.0-37.0); MEAN CORPUSCULAR VOLUME 71 fL (80-100); MONOCYTES # (AUTO) 0.6 K/uL (0.1-1.0); MONOCYTES % (AUTO) 16.5 % (2.0-9.0); NEUTROPHILS # (AUTO) 1.7 K/uL (1.8-7.7); NEUTROPHILS % (AUTO) 43.9 % (40.0-70.0); PLATELET COUNT (AUTO) 235 K/uL (150-450); RED BLOOD CELL COUNT(AUTO) 5.49 MIL/uL (4.50-5.90); RED CELL DISTRIBUTION WIDTH 15.8 % (11.5-14.5)
[2019-02-12 08:47] LABS: ANION GAP 4 mmol/L (8-16); CALCIUM, TOTAL 9.3 mg/dL (8.8-10.5); CARBON DIOXIDE 32 mmol/L (22-29); CHLORIDE 104 mmol/L (98-107); GLOMERULAR FILTR. RATE CALC > 60 mL/min (>60); GLUCOSE,RANDOM 108 mg/dL (70-110); POTASSIUM 4.4 mmol/L (3.5-5.1); SODIUM SERUM 140 mmol/L (136-145); UREA NITROGEN, BLOOD 12 mg/dL (7-18)
[2019-02-12] MEDS: BENZTROPINE MESYLATE 1 MG TABLET PO SCH (16:56)
[2019-02-13 02:31] VITALS: BP 134/82
[2019-02-13] MEDS: EMTRICITABINE/TENOFOVIR 200-300 MG TABLET PO SCH (08:41)
[2019-02-13] MEDS: HALOPERIDOL 5 MG TABLET PO SCH ×2 (08:41→16:36)
[2019-02-13] MEDS: BENZTROPINE MESYLATE 1 MG TABLET PO SCH (16:36)
[2019-02-14] MEDS: EMTRICITABINE/TENOFOVIR 200-300 MG TABLET PO SCH (09:00)
[2019-02-14] MEDS: HALOPERIDOL 5 MG TABLET PO SCH ×2 (09:09→16:53)
[2019-02-14] MEDS: BENZTROPINE MESYLATE 1 MG TABLET PO SCH (16:53)
[2019-02-15] MEDS: EMTRICITABINE/TENOFOVIR 200-300 MG TABLET PO SCH (09:00)
[2019-02-15] MEDS: HALOPERIDOL 5 MG TABLET PO SCH ×2 (09:52→16:35)
[2019-02-15] MEDS: BENZTROPINE MESYLATE 1 MG TABLET PO SCH (16:35)
[2019-02-16] MEDS: HALOPERIDOL 5 MG TABLET PO SCH ×2 (08:46→16:45)
[2019-02-16] MEDS: EMTRICITABINE/TENOFOVIR 200-300 MG TABLET PO SCH (08:46)
[2019-02-16] MEDS: BENZTROPINE MESYLATE 1 MG TABLET PO SCH (16:45)
[2019-02-17] MEDS: EMTRICITABINE/TENOFOVIR 200-300 MG TABLET PO SCH (09:00)
[2019-02-17] MEDS: HALOPERIDOL 5 MG TABLET PO SCH ×2 (09:27→17:19)
[2019-02-17] MEDS: BENZTROPINE MESYLATE 1 MG TABLET PO SCH (17:19)
[2019-02-18] MEDS ORDERED: TRUVT PO (08:47)
[2019-02-18] MEDS ORDERED: BENZ1TAB10 PO (08:47)
[2019-02-18] MEDS ORDERED: HALO5TAB2 PO (08:47)
[2019-02-18] MEDS: EMTRICITABINE/TENOFOVIR 200-300 MG TABLET PO SCH (09:00)
[2019-02-18] MEDS: HALOPERIDOL 5 MG TABLET PO SCH ×2 (10:05→17:15)
[2019-02-18] MEDS: BENZTROPINE MESYLATE 1 MG TABLET PO SCH (17:15)
[2019-02-19] MEDS: HALOPERIDOL 5 MG TABLET PO SCH (08:30)
[2019-02-19] MEDS: EMTRICITABINE/TENOFOVIR 200-300 MG TABLET PO SCH (08:30)
== END 2019-02-19 15:10 | disposition home or self-care (01) | DRG 750 ==
LOC: EMS 10:59 → B3A 15:56
PROVIDERS: ADMIT Psychiatry & Neurology Psychiatry; ATTEND Psychiatry & Neurology Psychiatry
DX: F20.9 Schizophrenia, unspecified (principal); E11.9 Type 2 diabetes mellitus without complications; D64.9 Anemia, unspecified; F41.9 Anxiety disorder, unspecified; D72.819 Decreased white blood cell count, unspecified; F94.0 Selective mutism; R45.87 Impulsiveness; Z59.0 Homelessness; Z91.14 Patient's other noncompliance with medication regimen
CPT/HCPCS: 83036; 84443; 87081; G0480; J1200; J1630; J2060